=== PATIENT | male | born 1940 | race Caucasian/White ===

== ENCOUNTER 2018-11-22 08:11 | Outpatient (CLI) | payer MEDICARE, MEDICAID ==
[~2018-11-22 08:11] MED LIST: TRAM-47 PO
[2018-11-22 09:35] LABS: BASOPHILS # (AUTO) 0.02 x10^3/uL (0-0.1); BASOPHILS % (AUTO) 1 % (0-1); EOSINOPHILS # (AUTO) 0.06 x10^3/uL (0-0.4); EOSINOPHILS % (AUTO) 2 % (1-7); LYMPHOCYTES # (AUTO) 0.91 x10^3/uL (1-3.4); LYMPHOCYTES % (AUTO) 24 % (22-44); MD NO; MEAN CORPUSCULAR HGB CONC 33.6 g/dL (33.2-36.2); MEAN CORPUSCULAR VOLUME 86.2 fL (81-97); MEAN PLATELET VOLUME 8.2 fL (7.4-10.4); MONOCYTES % (AUTO) 13 % (2-9); NEUTROPHILS # (AUTO) 2.37 x10^3/uL (1.8-6.8); NEUTROPHILS % (AUTO) 61 % (42-75); PLATELET COUNT 218 x10^3/uL (130-400); RED BLOOD COUNT 5.08 x10^6/uL (4.38-5.82)
[2018-11-22 09:42] LABS: ALANINE AMINOTRANSFERASE 14 U/L (12-78); ALBUMIN 3.7 g/dL (3.4-5.0); ANION GAP 5 mmol/L (5-15); CALCIUM 9.1 mg/dL (8.5-10.1); CHLORIDE 107 mmol/L (98-107)
[2018-11-22 09:51] LABS: ALKALINE PHOSPHATASE 64 U/L (45-117); BILIRUBIN,TOTAL 0.7 mg/dL (0.2-1.0); CHOL/HDL RATIO 3.9; CHOLESTEROL, TOTAL 213 mg/dL (140-239); CREATININE 1.03 mg/dL (0.7-1.3); FREE T4 (FREE THYROXINE) 1.04 ng/dL (0.76-1.46); HDL CHOL % 25 % (26-37); HDL CHOLESTEROL (DIRECT) 54 mg/dL (40-60); LDL CHOLESTEROL,CALCULATED 133 mg/dL (54-169); LDL/HDL RATIO 2.5 (0.5-3.0); TOTAL PROTEIN 7.2 g/dL (6.4-8.2); TRIGLYCERIDES 130 mg/dL (50-200); VLDL CHOLESTEROL 26 mg/dL (0-25)
[2018-11-22 10:07] LABS: HCT (SEDRATE) 43.8 % (39.2-51.8)
== END 2018-11-22 23:59 | disposition home or self-care (01) ==
LOC: RAD 08:11
PROVIDERS: ATTEND Family Medicine
DX: M41.86 Other forms of scoliosis, lumbar region (principal); M47.816 Spondylosis without myelopathy or radiculopathy, lumbar region; M51.37 Other intervertebral disc degeneration, lumbosacral region; M16.10 Unilateral primary osteoarthritis, unspecified hip; G89.29 Other chronic pain; I10 Essential (primary) hypertension; Z12.5 Encounter for screening for malignant neoplasm of prostate; E55.9 Vitamin D deficiency, unspecified
CPT/HCPCS: 36415; 72110; 72170; 80053; 80061; 82306; 84153; 84439; 84443; 85025; 85651

== ENCOUNTER 2020-02-05 18:03 | Emergency (ER) | payer MEDICARE, MEDICAID ==
[~2020-02-05] VITALS: Ht 185.4 cm; Wt 77.1 kg
[~2020-02-05 18:03] MED LIST changes: +ASPI81TA45 PO; +DOCU100C33 PO; +FINA5TAB4 PO; +METO25TA35 PO; +PHEN28OI8 RC; +RIVA20TA PO; +TAMS-11 PO
[2020-02-05 18:39] VITALS: BP 146/78
[2020-02-05] MEDS ORDERED: CARBAMIDE PEROXIDE EAR DROPS 6.5%, 15ML LEFT EAR ONE (19:00)
== END 2020-02-05 20:11 | disposition left against medical advice (07) ==
LOC: ED 20:00
DX: H91.90 Unspecified hearing loss, unspecified ear (principal); Z53.21 Procedure and treatment not carried out due to patient leaving prior to being seen by health care provider